=== PATIENT | male | born 1955 | race Caucasian/White ===

== ENCOUNTER 2018-08-22 14:57 | Emergency (ER) | payer OTHER ==
--- OUTSIDE RECORDS SUMMARY | 2018-08-22 14:59 | XMS REPORT | Summary of Care ---
:1955 Author Name MAYCOL SHEFFIELD D.O. Address Unavailable Unavailable , Care Team Providers Name Role Phone ANGELO SCHMIDT N.P. Unavailable Unavailable MAYCOL SHEFFIELD D.O. Unavailable Unavailable Unavailable Unavailable Unavailable Functional Status Name Dates Details Functional status health issues are not documented Status: Name Dates Details Cognitive status health issues are not documented Status: Problems Name Dates Details Protein calorie malnutrition (263.9, E46) Status: Active Intestinal malabsorption (579.9, K90.9) Status: Active Diabetes (250.00, E11.9) Status: Active Vitamin D deficiency (268.9, E55.9) Status: Active Malnutrition (263.9, E46) Status: Active Abdominal pain (789.00, R10.9) Status: Active GERD (gastroesophageal reflux disease) (530.81, K21.9) Status: Active Medications Name Dates Details MetFORMIN HCl - 1000 MG Oral Tablet Refills: 0 Active Verapamil HCl - 40 MG Oral Tablet Refills: 0 Active Actos 15 MG Oral Tablet Refills: 0 Active Losartan Potassium 100 MG Oral Tablet Refills: 0 Active HumaLOG SOLN Refills: 0 Active Multi Vitamin Mens Oral Tablet Refills: 0 Active Brittany Aspirin EC Low Dose 81 MG Oral Tablet Delayed Release Refills: 0 Active Invokana TABS Refills: 0 Active Vitamin D (Ergocalciferol) 75078 UNIT Oral Capsule TAKE 1 CAPSULE WEEKLY. Quantity: 4 Refills: 3 ANGELO SCHMIDT N.P. Start : 09-Jun-2017 Active Sucralfate 1 GM Oral Tablet TAKE 1 TABLET 4 TIMES DAILY, BEFORE MEALS AND AT BEDTIME. Quantity: 120 Refills: 3 MAYCOL SHEFFIELD D.O. Start : 06-May-2018 Active Pantoprazole Sodium 40 MG Oral Tablet Delayed Release TAKE 1 TABLET TWICE DAILY 30 MINUTES BEFORE BREAKFAST AND DINNER. Quantity: 60 Refills: 3 MAYCOL SHEFFIELD D.O. Start : 06-May-2018 Active Allergies and Adverse Reactions Name Dates Details No Known Drug Allergies (Allergy) Status: Active Procedures Procedure Dates Details [L] Vitamin D, 25-Hydroxy, Total - Esoterix Date: 05-May-2018 [LH] CBC (without differential) Date: 05-May-2018 [QL] COMPREHENSIVE METABOLIC PANEL W/O eGFR Date: 05-May-2018 [QLH] FOLATE, SERUM Date: 05-May-2018 [QLH] HEMOGLOBIN A1c Date: 05-May-2018 [QLH] IRON, TOTAL Date: 05-May-2018 [QLH] LIPID PANEL Date: 05-May-2018 [QLH] PTH, INTACT (WITHOUT CALCIUM) Date: 05-May-2018 [QLH] TSH, 3RD GENERATION Date: 05-May-2018 [QLH] VITAMIN A (RETINOL) Date: 05-May-2018 [QLH] VITAMIN B1, WHOLE BLOOD Date: 05-May-2018 [QLH] VITAMIN B12 Date: 05-May-2018 [QLH] VITAMIN E (TOCOPHEROL) Date: 05-May-2018 CT Abdomen/Pelvis w contrast 12191 Date: 05-May-2018 Immunization Name Dates Details Immunizations not documented Social History Name Dates Details - Status: Name Dates Details Unknown if ever smoked Vital Signs Date Test Result Details No Known Vitals to report Results Date Description Value Details Results not documented Plan of Care Name Dates Details Planned Observations Planned Goals not documented Interventions Provided Medication ChangesPantoprazole Sodium 40 MG Oral Tablet Delayed Release - StartSucralfate 1 GM Oral Tablet - StartLabs/Procedures/Imaging[L] Vitamin D, 25 -Hydroxy, Total - Esoterix; To Be Done: 05 May 2018[LH] CBC (without differential); To Be Done: 05 May 2018[QL] COMPREHENSIVE METABOLIC PANEL W/O eGFR; To Be Done: 05 May 2018[QLH] FOLATE, SERUM; To Be Done: 05 May 2018[QLH] HEMOGLOBIN A1c; To Be Done: 05 May 2018[QLH] IRON, TOTAL; To Be Done: 05 May 2018[QLH] LIPID PANEL; To Be Done: 05 May 2018[QLH] PTH, INTACT (WITHOUT CALCIUM ); To Be Done: 05 May 2018[QLH] TSH, 3RD GENERATION; To Be Done: 05 May 2018[QLH ] VITAMIN A (RETINOL); To Be Done: 05 May 2018[QLH] VITAMIN B1, WHOLE BLOOD; To Be Done: 05 May 2018[QLH] VITAMIN B12; To Be Done: 05 May 2018[QLH] VITAMIN E ( TOCOPHEROL); To Be Done: 05 May 2018CT Abdomen/Pelvis w contrast [id number]; To Be Done: 05 May 2018 Instructions Name Dates Details Instructions not documented Encounters Appointment; MAYCOL SHEFFIELD D.O. On: 04-Jun-2016 15:00 Encounter Diagnosis: Problem not documented Appointment; MAYCOL SHEFFIELD D.O. On: 03-Dec-2016 13:00 Encounter Diagnosis: Problem not documented Appointment; MAYCOL SHEFFIELD D.O. On: 27-May-2017 14:00 Encounter Diagnosis: Problem not documented Appointment; MAYCOL SHEFFIELD D.O. On: 05-May-2018 13:45 Encounter Diagnosis: Problem not documented
[2018-08-22] MEDS ORDERED: TETRACAINE HCL 0.5% 2ML OPTH ONE (16:24)
[2018-08-22] MEDS ORDERED: FLUORESCEIN SODIUM 0.6 MG/WRAP ONE (18:56)
--- NOTE | 2018-08-22 19:08 | EDPHYS ---
Physician Documentation [facility] Name: Deondre Duncan Jr Age: 62 yrs Sex: Male : 1955 Arrival Date: 08/22/2018 Time: 15:01 Bed 9 Private MD: Mikayla Kiran C ED Physician Kevin Markham HPI: 08/22 16:05 This 62 yrs old Male presents to ER via Ambulatory with complaints of Foreign jr8 Body In Eye. 16:05 The patient is experiencing pain, redness, tearing, to the right eye, caused by jr8 chemicals. Onset: The symptoms/episode began/occurred acutely, today. Duration: the symptoms are continuous. Aggravated by light, opening eye, Alleviated by nothing. Associated signs and symptoms: Pertinent positives: None. Severity of symptoms: At their worst the symptoms were moderate in the emergency department the symptoms are unchanged. The patient has not experienced similar symptoms in the past. The patient has not recently seen a physician. was cleaning battery terminals on a car and felt a abiel of something go into his right eye. Pain since incident . Historical: - Allergies: 15:11 No Known Allergies; aa5 - PMHx: 15:11 Diabetes - NIDDM; aa5 - PSHx: 15:11 Gastric Bypass(April 23, 2015); Cholecystectomy(2012); aa5 - Immunization history:: Last tetanus immunization: up to date. - Ebola Screening: : No symptoms or risks identified at this time. ROS: 16:05 ENT: Negative for injury, pain, and discharge, Neck: Negative for injury, pain, and jr8 swelling, Cardiovascular: Negative for chest pain, palpitations, and edema, Respiratory: Negative for shortness of breath, cough, wheezing, and pleuritic chest pain, Abdomen/GI: Negative for abdominal pain, nausea, vomiting, diarrhea, and constipation, Back: Negative for injury and pain, MS/Extremity: Negative for injury and deformity, Skin: Negative for injury, rash, and discoloration, Neuro: Negative for headache, weakness, numbness, tingling, and seizure. 16:05 Eyes: Positive for pain, redness, tearing, of the right eye. Exam: 16:05 Head/Face: Normocephalic, atraumatic. ENT: Nares patent. No nasal discharge, no jr8 septal abnormalities noted. Tympanic membranes are normal and external auditory canals are clear. Oropharynx with no redness, swelling, or masses, exudates, or evidence of obstruction, uvula midline. Mucous membranes moist. Cardiovascular: Regular rate and rhythm with a normal S1 and S2. No gallops, murmurs, or rubs. Normal PMI, no JVD. No pulse deficits. Respiratory: Lungs have equal breath sounds bilaterally, clear to auscultation and percussion. No rales, rhonchi or wheezes noted. No increased work of breathing, no retractions or nasal flaring. Skin: Warm, dry with normal turgor. Normal color with no rashes, no lesions, and no evidence of cellulitis. MS/ Extremity: Pulses equal, no cyanosis. Neurovascular intact. Full, normal range of motion. Neuro: Awake and alert, GCS 15, oriented to person, place, time, and situation. Cranial nerves II-XII grossly intact. Motor strength 5/5 in all extremities. Sensory grossly intact. Cerebellar exam normal. Normal gait. 16:05 Eyes: Periorbital structures: appear normal, Pupils: equal, round, and reactive to light and accomodation, Extraocular movements: intact throughout, Conjunctiva: injected, in the right eye, tearing noted, in right eye, Anterior chamber: normal, Lids and lashes: appear normal, Examination of the other eye reveals no obvious gross abnormality. Vital Signs: 15:12 BP 115 / 75; Pulse 105; Resp 18 S; Temp 98.6(TE); Pulse Ox 99% ; Weight 97.52 kg (R); aa5 Height 6 ft. 3 in. (190.50 cm) (R); Pain 3/10; 15:12 Body Mass Index 26.87 (97.52 kg, 190.50 cm) aa5 Visual Acuity: 19:15 Left Eye Visual acuity 20/15, ; Right Eye Visual acuity 20/20, ; Both Eyes Visual ak1 acuity 20/15; With Lenses; MDM: 16:01 Patient medically screened. jr8 19:04 Data reviewed: vital signs, nurses notes, and as a result, I will discharge patient. jr8 Data interpreted: Pulse oximetry: on room air is 99 %. Interpretation: normal. Counseling: I had a detailed discussion with the patient and/or guardian regarding: the historical points, exam findings, and any diagnostic results supporting the discharge/admit diagnosis, the need for outpatient follow up, an opthalmologist, to return to the emergency department if symptoms worsen or persist or if there are any questions or concerns that arise at home. 08/22 16:05 Order name: [facility] [place]: Donte Lens with 1000ml Bag right eye; Complete Time: 17:43 jr8 08/22 19:04 Order name: Visual Acuity; Complete Time: 19:17 jr8 Administered Medications: 16:15 Drug: Tetracaine Drops 0.5 % 1 drops Route: Ophthalmic; Site: right eye; aa5 Disposition: 08/23 09:20 Co-signature as Attending Physician, Dashawn Miner MD I agree with the assessment and jessica plan of care. Disposition: 08/22/18 19:06 Discharged to Home. Impression: Conjunctivitis - Chemical . - Condition is Stable. - Discharge Instructions: Chemical Conjunctivitis, Adult. - Prescriptions for Gentamicin 0.3 % Ophthalmic Drops - instill 2 drops by OPHTHALMIC route every 4 hours for 7 days; 1 bottle. - Medication Reconciliation Form, Thank You Letter, Antibiotic Education, Prescription Opioid Use form. - Follow up: Dashawn Miner MD; When: 1 - 2 days; Reason: Recheck today's complaints, Continuance of care, Re-evaluation by your physician. - Problem is new. - Symptoms have improved. Signatures: Kevin Markham MD MD cha Calderon, Audri, RN RN aa5 Miguel Dash PA PA jr8 Leslie Coreas RN RN ak1 Corrections: (The following items were deleted from the chart) 08/22 19:16 19:06 08/22/2018 19:06 Discharged to Home. Impression: Conjunctivitis - Chemical . ak1 Condition is Stable. Forms are Medication Reconciliation Form, Thank You Letter, Antibiotic Education, Prescription Opioid Use. Follow up: Dashawn Miner; When: 1 - 2 days; Reason: Recheck today's complaints, Continuance of care, Re-evaluation by your physician. Problem is new. Symptoms have improved. jr8
--- NOTE | 2018-08-22 19:08 | ER ---
Nurse's Notes [facility] Name: Deondre Duncan Jr Age: 62 yrs Sex: Male : 1955 Arrival Date: 08/22/2018 Time: 15:01 Bed 9 Private MD: Mikayla Kiran C Diagnosis: Conjunctivitis-Chemical Presentation: 08/22 15:09 Presenting complaint: Patient states: "I was working unde my truck on a battery and I aa5 felt something get into my eye". Pt c/o pain to right eye. Transition of care: patient was not received from another setting of care. Onset of symptoms was August 22, 2018 at 14:30. Risk Assessment: Do you want to hurt yourself or someone else? Patient reports no desire to harm self or others. Initial Sepsis Screen: Does the patient meet any 2 criteria? No. Patient's initial sepsis screen is negative. Does the patient have a suspected source of infection? No. Patient's initial sepsis screen is negative. Care prior to arrival: None. 15:09 Method Of Arrival: Ambulatory aa5 15:09 Acuity: ACE 4 aa5 Triage Assessment: 15:11 General: Appears uncomfortable, Behavior is calm, cooperative. Pain: Complains of pain aa5 in right eye. EENT: Eyes are tearing on right eye Sclera/Cornea are reddened in right eye Reports irritating pain to right eye, no FB noted. . Neuro: Level of Consciousness is awake, alert, obeys commands, Oriented to person, place, time, situation. Respiratory: Airway is patent Respiratory effort is even, unlabored, Respiratory pattern is regular, symmetrical. Derm: Skin is pink, warm \\T\\ dry. Musculoskeletal: Range of motion: intact in all extremities. Historical: - Allergies: 15:11 No Known Allergies; aa5 - PMHx: 15:11 Diabetes - NIDDM; aa5 - PSHx: 15:11 Gastric Bypass(April 23, 2015); Cholecystectomy(2012); aa5 - Immunization history:: Last tetanus immunization: up to date. - Ebola Screening: : No symptoms or risks identified at this time. Screenin:43 Abuse screen: Denies threats or abuse. Denies injuries from another. Nutritional iw screening: No deficits noted. Tuberculosis screening: No symptoms or risk factors identified. Fall Risk None identified. Assessment: 17:00 General: Appears uncomfortable. Pain: Complains of pain in right eye. Neuro: Level of iw Consciousness is awake, alert, obeys commands, Oriented to person, place, time, situation, Moves all extremities. Full function. Cardiovascular: Patient's skin is warm and dry. Respiratory: Respiratory effort is even, unlabored. 17:11 Reassessment: pt unable to tolerate Donte lens. iw 17:42 Reassessment: pt tolerating Donte Lens, approx 500 mL in now. iw Vital Signs: 15:12 BP 115 / 75; Pulse 105; Resp 18 S; Temp 98.6(TE); Pulse Ox 99% ; Weight 97.52 kg (R); aa5 Height 6 ft. 3 in. (190.50 cm) (R); Pain 3/10; 15:12 Body Mass Index 26.87 (97.52 kg, 190.50 cm) aa5 Visual Acuity: 19:15 Left Eye Visual acuity 20/15, ; Right Eye Visual acuity 20/20, ; Both Eyes Visual ak1 acuity 20/15; With Lenses; ED Course: 15:01 Patient arrived in ED. mr 15:01 Mikayla Kiran MD is Private Physician. mr 15:09 Arm band placed on. aa5 15:11 Triage completed. aa5 15:59 Margareth King RN is Primary Nurse. aa5 16:00 Miguel Dash PA is PHCP. jr8 16:00 Kevin Markham MD is Attending Physician. jr8 17:00 Assist provider with eye exam of right eye. Performed by Miguel COLLIER. iw 17:43 Primary Nurse role handed off by Margareth King RN iw 17:43 Juana Gu, ELIZA is Primary Nurse. iw 19:05 Dashawn Miner MD is Referral Physician. jr8 19:16 Patient has correct armband on for positive identification. ak1 19:16 Patient did not have IV access during this emergency room visit. ak1 Administered Medications: 16:15 Drug: Tetracaine Drops 0.5 % 1 drops Route: Ophthalmic; Site: right eye; aa5 Outcome: 19:06 Discharge ordered by MD. jr8 19:16 Discharged to home ambulatory, with family. ak1 19:16 Condition: improved 19:16 Discharge instructions given to patient, family, Instructed on discharge instructions, follow up and referral plans. medication usage, Demonstrated understanding of instructions, follow-up care, medications, Prescriptions given X 1. 19:16 Patient left the ED. ak1 Signatures: Minal PedroJuana, RN RN Margareth Nash RN RN aa5 Miguel Dash, NANDO COLLIER jr8 Leslie Coreas, RN RN ak1 Corrections: (The following items were deleted from the chart) 15:35 15:09 Acuity: ACE 3 aa5 aa5 16:00 General: Appears uncomfortable, Behavior is calm, cooperative, aa5 aa5 : 16:00 Pain: Complains of pain in right eye aa5 aa 16:00 EENT: Eyes are tearing on right eye Sclera/Cornea are reddened in right eye aa5 Reports irritating pain to right eye, no FB noted. . aa5 : 16:00 Neuro: Level of Consciousness is awake, alert, obeys commands, Oriented to aa5 person, place, time, situation, aa5 : 16:00 Respiratory: Airway is patent Respiratory effort is even, unlabored, Respiratory aa5 pattern is regular, symmetrical, aa5 : 16:00 Derm: Skin is pink, warm \\T\\ dry. aa5 aa 16:00 Musculoskeletal: Range of motion: intact in all extremities, aa5 aa
[2018-08-22 21:26] VITALS: BP 115/75; TEMP 98.6; O2SAT 99
== END 2018-08-22 19:16 | disposition home or self-care (01) ==
LOC: ER 14:57
DX: H10.211 Acute toxic conjunctivitis, right eye (principal)
CPT/HCPCS: 99283

== ENCOUNTER 2020-07-06 08:40 | Day surgery (SDC) | payer OTHER ==
--- OUTSIDE RECORDS SUMMARY | 2020-07-06 08:44 | XMS REPORT | Continuity of Care Document ---
:1955 Author Organization [facility] t Address 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 Social History Smoking Status Start Date Stop Date Source Never Smoker [facility] Family P ractice Medications Ordered Filled Start Stop Current Ordering Indication Dosage Frequency Signature Comments Components Source Medication Medication Date Date Medication? Clinician (SIG) Name Name Vitamin D Vitamin D 2019-07 Yes ANGELO TAKE 1 Univers (Ergocalcif (Ergocalcif 0-30 [employer]LE BY ity of saurav) 1.25 saurav) 1.25 00:00: MOUTH ONE [place] MG (58128 MG (18302 00 TIME PER P hysici UT) Oral UT) Oral WEEK ans Capsule Capsule Sucralfate Sucralfate 2017-07 Yes SHINIL Q0.25D TAKE 1 Univers 1 GM Oral 1 GM Oral 0-18 SHEFFIELD D.O. TABLET 4 ity of Tablet Tablet 00:00: TIMES [place] 00 DAILY, Physici BEFORE ans MEALS AND AT BEDTIME. Pantoprazol Pantoprazol 2017-07 Yes SHINIL Q0.5D TAKE 1 Univers e Sodium 40 e Sodium 40 0-18 SHEFFIELD D.O. TABLET ity of MG Oral MG Oral 00:00: TWICE [place] Tablet Tablet 00 DAILY 30 Physici Delayed Delayed MINUTES ans Release Release BEFORE BREAKFAST AND DINNER. Vitamin D Vitamin D 2016-07 Yes ANGELO TAKE 1 Univers (Ergocalcif (Ergocalcif 1-21 [employer] ity of saurav) 1.25 saurav) 1.25 00:00: WEEKLY. [place] MG (88507 MG (85169 00 Physi ci UT) Oral UT) Oral ans Capsule Capsule Calcium [address] [facility] vitamin d3 vitamin d3 500 Fam liliana combp qd combp qd vitamin d3 P ractic combp qd e Centrum Centrum No [facility] Januvia 100 [facility] 100 [facility] [address] [facility] mg tablet mg tablet 100 mg Fam liliana Take 1 Take 1 tablet Practic tablet tablet Take 1 e every day every day tablet by oral by oral every day route for route for by oral 90 days. 90 days. route for 90 days. OneTouch OneTouch No 2strip( Q1D Oneuch [facility] Verio test Verio test s) Verio test Family strips Take strips Take strips Practic 2 strips 2 strips Take 2 e every day every day strips by miscell. by miscell. every day route for route for by 90 days. 90 days. miscell. route for 90 days. pioglitazon pioglitazon No [address] [facility] e 15 mg e 15 mg ne 15 mg Famil y tablet Take tablet Take tablet Practic 1 tablet 1 tablet Take 1 e every day every day tablet by oral by oral every day route for route for by oral 90 days. 90 days. route for 90 days. simvastatin simvastatin No 1 Q1D [facility] 10 mg 10 mg n 10 mg Family tablet Take tablet Take tablet Practic 1 tablet 1 tablet Take 1 e every day every day tablet by oral by oral every day route for route for by oral 90 days. 90 days. route for 90 days. Synjardy XR Synjardy XR No [address] [facility] 12.5 12.5 XR 12.5 Family mg-1,000 mg mg-1,000 mg mg-1,000 Practic tablet, tablet, mg tablet, e extended extended extended release release release Take 2 Take 2 Take 2 tablets tablets tablets every day every day every day by oral by oral by oral route for route for route for 90 days. 90 days. 90 days. tadalafil tadalafil No 1 Q1D tadalafil Ryne 10 mg 10 mg 10 mg Family tablet Take tablet Take tablet Practic 1 tablet 1 tablet Take 1 e every day every day tablet by oral by oral every day route. route. by oral route. Tresiba Tresiba No Tresiba Villag e FlexTouch FlexTouch FlexTouch Family U-100 U-100 U-100 Practic insulin 100 insulin 100 insulin e unit/mL (3 unit/mL (3 100 mL) mL) unit/mL (3 subcutaneou subcutaneou mL) s pen Give s pen Give subcutaneo 10 units in 10 units in us pen AM and AM and Give 10 increase as increase as units in directed: directed: AM and TDD 40 TDD 40 increase as directed: TDD 40 metFORMIN metFORMIN Yes Unive rs HCl - 1000 HCl - 1000 ity of MG Oral MG Oral [place] Tablet Tablet Physici ans Verapamil Verapamil Yes Unive rs HCl - 40 MG HCl - 40 MG i ty of Oral Tablet Oral Tablet [place] [facility] Actos 15 MG Actos 15 MG Yes U nivers Oral Tablet Oral Tablet i ty of [place] [facility] Losartan Losartan Yes Univers Potassium Potassium ity o f 100 MG Oral 100 MG Oral [place] Tablet Tablet Physici ans Multi Multi Yes Univers Vitamin Vitamin ity of Mens TABS Mens TABS [place] [facility] [place] Yes Univers Aspirin EC Aspirin EC ity of Low Dose 81 Low Dose 81 [place] MG Oral MG Oral Physici Tablet Tablet ans Delayed Delayed Release Release HumaLOG HumaLOG Yes Univers SOLN SOLN [facility] [place] [facility] Invokana Invokana Yes Univers TABS TABS [facility] [place] [facility] ans Immunizations Ordered Immunization Filled Immunization Date Status Commen ts Source Name Name influenza, influenza, 2020-03-20 [facility] injectable, injectable, 00:00:00 Practice quadrivalent quadrivalent MMR MMR 1999-03-20 [facility] 00:00:00 Practice Vital Signs Vital Name Observation Time Observation Value Comments Source BP Diastolic 2020-06-21 00:00:00 80 mm[Hg] [facility] Practice Height 2020-06-21 00:00:00 69 [in_i] [facility] Practice BMI (Body Mass 2020-06-21 00:00:00 34.1 kg/m2 [facility] Family Index) Practice BP Systolic 2020-06-21 00:00:00 122 mm[Hg] [facility] Body Weight 2020-06-21 00:00:00 230.9 [lb_av] [facility] BP Systolic 2017-05-27 14:30:00 135 mm[Hg] Universi [facility] Physician s BP Diastolic 2017-05-27 14:30:00 77 mm[Hg] Universi [facility] Physician s Height 2017-05-27 14:30:00 75 [in_us] [facility] [place] [facility] Weight 2017-05-27 14:30:00 225 [lb_av] Universi ty [facility] Physician s Body Mass Index 2017-05-27 14:30:00 28.12 kg/m2 Unive rsity [facility] Physician s Temperature 2017-05-27 14:30:00 98.2 [degF] Universi ty [facility] Physician s Heart Rate 2017-05-27 14:30:00 73 /min Universi ty [facility] Physician s Procedures Procedure Date / Time Performing Clinician Source Performed [L] Vitamin D 25-Hydroxy, 2020-04-11 00:00[facility] [QL] COMPREHENSIVE 2020-04-11 00:00:00 [facility] METABOLIC PANEL W/O eGFR Physici ans [QL] FOLATE, SERUM 2020-04-11 00:00:00 [facility] Physicians [QL] HEMOGLOBIN A1c 2020-04-11 00:00:00 [facility] Phys[facility] [QL] IRON, TOTAL 2020-04-11 00:00:00 [facility] Physicians [QL] LIPID PANEL 2020-04-11 00:00:00 [facility] Physicians [QL] PTH, INTACT (WITHOUT 2020-04-11 00:00[facility]00 [facility] [QL] TSH, 3RD GENERATION 2020-04-11 00:00:00 Uni versity [facility] Physicians [QL] VITAMIN A (RETINOL) 2020-04-11 00:00:00 Uni versity [facility] Physicians [QL] VITAMIN B1, WHOLE 2020-04-11 00:00[facility]00 [facility] [QL] VITAMIN B12 2020-04-11 00:00:00 [facility] Physicians [QL] VITAMIN E 2020-04-11 00:00:00 [place] [facility] [place] (TOCOPHEROL) Physicians NM Bone Density-Dual 2020-04-11 00:00:00 [facility] Energy Absorptionmetry Physician s [id number] [L] Vitamin D, 25-Hydroxy, 2018-05-05 00:00:00 U [facility] Total - [employer] Physicians [LH] CBC (without 2018-05-05 00:00:00 [facility] differential) Physicians [QL] COMPREHENSIVE 2018-05-05 00:00:00 [facility] METABOLIC PANEL W/O eGFR Physici ans [QLH] FOLATE, SERUM 2018-05-05 00:00:00 [facility] Physicians [QLH] HEMOGLOBIN A1c 2018-05-05 00:00:00 [facility] Physicians [QLH] IRON, TOTAL 2018-05-05 00:00:00 [facility] Physicians [QLH] LIPID PANEL 2018-05-05 00:00:00 [facility] Physicians [QLH] PTH, INTACT (WITHOUT 2018-05-05 00:00:00 U [facility] CALCIUM) Physicians [QLH] TSH, 3RD GENERATION 2018-05-05 [facility] VITAMIN A (RETINOL) 2018-05-05 00:00[facility]00 [facility]] VITAMIN B1, WHOLE 2018-05-05 00:00:00 Univ [facility] BLOOD Physicians [QLH] VITAMIN B12 2018-05-05 00:00:00 [facility] Physicians [QLH] VITAMIN E 2018-05-05 00:00:00 [place] [facility] [place] (TOCOPHEROL) Physicians CT Abdomen/Pelvis w 2018-05-05 00:00:00 [facility] contrast [id number] Physicians [LH] CBC (without 2017-05-27 00:00:00 [facility] differential) Physicians [QLH] FOLATE, SERUM 2017-05-27 00:00:00 [facility] Physicians [QLH] IRON, TOTAL 2017-05-27 00:00:00 [facility] Physicians [QLH] PTH, INTACT (WITHOUT 2017-05-27 00:00:00 [facility] Physicians [QL] VITAMIN A (RETINOL) 2017-05-27 00:00:00 [facility] [[facility]] VITAMIN B12 2017-05-27 00:00:00 [facility] Physicians [L] Vitamin D 25-Hydroxy, 2017-05-27 00:00:00 Un [facility] D2 + D3 Physicians [QL] COMPREHENSIVE 2017-05-27 00:00:00 [facility] METABOLIC PANEL W/O eGFR Physici ans [QL] HEMOGLOBIN A1c 2017-05-27 00:00:00 [facility] [QL] LIPID PANEL 2017-05-27 00:00:00 [facility] Physicians [[facility]] TSH, 3RD GENERATION 2017-05-27 00:00:00 Un [facility] Physicians [[facility]] VITAMIN B1, WHOLE 2017-05-27 00:00:00 [facility] BLOOD Physicians [[facility]] VITAMIN E 2017-05-27 00:00:00 [place] [facility] (TOCOPHEROL) Physicians Plan of Care Planned Activity Planned Date Details Comments Source Diagnostic Test 2020-06-21 glucose, fingerstick, [place] [facility] Family Pending 00:00:00 blood [code = Practice glucose, fingerstick, blood] Diagnostic Test 2020-06-21 hemoglobin A1C, [place] F amily Pending 00:00:00 fingerstick [code = Practice hemoglobin A1C, fingerstick] Diagnostic Test 2020-06-21 diabetes panel, serum [facility] Family Pending 00:00:00 [code = diabetes Practice panel, serum] Diagnostic Test 2020-06-21 C-peptide, serum [facility] Pending 00:00:00 [code = C-peptide, Practice serum] Future Appointment 2020-09-19 Adriel Jenkins, [id number] [facility] 08:00:[address]; Practice [address], [place] [address] Future Appointment 2020-09-19 Adriel Jenkins, [id number] [facility] 00:00:00 [address]; [address], [place] [address] Encounters Start End Encounter Admission Attending Care Care Encounter Source Date/Time Date/Time Type Type Clinicians Facility Department ID 2020-06-21 2020-06-21 Adriel AKHTAR [place] - [id number] [facility] 00:00:00 00:00:[address] [facility] Family Gregory, Tj - Barbara butler MD: [id number] [id number] salazar [facility], [address] [address] , Ph. 2020-04-11 2020-04-11 ISHMAEL Diaz General [id number] Univers 13:15:00 13:15:00 t; MAYCOL SHEFFIELD, Surgery - Miguel Angel D.O. [facility] ans 2018-05-05 2018-05-05 ISHMAEL Diaz General [id number] Univers 13:45:00 13:45:00 t; MAYCOL SHEFFIELD, Surgery sukhwinder SEVERINO D.O. [place] [facility] ans 2017-05-27 2017-05-27 ISHMAEL Diaz Stephanie [id number] Univers 14:00:00 14:00:00 t; MAYCOL SHEFFIELD, [facility] sukhwinder SEVERINO D.O. [place] D[facility]. Physici ans 2016-12-03 2016-12-03 ISHMAEL Diaz UTP [id number] Univers 13:00:00 13:00:00 t; MAYCOL SHEFFIELD ity o f SHINIL, D.O. [place] D[facility]. Physici ans 2016-06-04 2016-06-04 ISHMAEL Diaz [id number] Univers 15:00:00 15:00:00 t; MAYCOL SHEFFIELD ity o f SHINIL, D.O. [place] D.O. Physici ans 2016-03-05 2016-03-05 ISHMAEL Diaz [id number] Univers 15:00:00 15:00:00 t; MAYCOL SHEFFIELD ity o f SHINIL, M.D. [place] M.D. Physici ans 2015-10-31 2015-10-31 ISHMAEL Diaz [id number] Univers 14:00:00 14:00:00 t; MAYCOL SHEFFIELD ity o f SHINIL, M.D. [place] M.D. Physici ans 2015-07-25 2015-07-25 ISHMAEL Diaz [id number] Univers 13:00:00 13:00:00 t; MAYCOL SHEFFIELD ity o f SHINIL, M.D. [facility] 2015-06-13 2015-06-13 Appointmen NETTIE ISHMAEL [facility] [id number] Univers 13:00:00 13:00:00 t; MAYCOL SHEFFIELD ity o f SHINIL, M.D. [facility] Results Test Description Test Time Test Comments Results Result Comments Source [QL] LIPID PANEL 2020-05-08 08:48:00 Test Item Value Reference Range Interpretation Comme nts CHOLESTEROL, TOTAL; Normal 120 mg/dl <200 N (test code = 2093-3) HDL CHOLESTEROL; Normal (test 53 mg/dl > OR = 40 N code = 2085-9) TRIGLYCERIDES; Normal (test 103 mg/dl <150 N code = 2571-8) LDL-CHOLESTEROL; Normal (test 48 {MG/DL MARILY} N Reference range: <100 code = 30032-1) Desirable ra nge <100 mg/dL for primary pre vention; <70 mg/dL for patie nts with CHD or diabetic pat ients with > or = 2 CHD risk factors. LDL-C is now ca lculated using the Margoth Swartz calculation, wh ich is a validated novel method providing minoo r accuracy than the Friede lidia equation in the estimati on of LDL-C. Anup SS et al . MAGALIS. 2013;310(84): 5 062-3958 (http://educati on.Cloupia.CleverSet/faq/ HZS602) CHOL/HDLC RATIO (test code = 2.3 {CALC} <5.0 N CHOL/HDLC RATIO) NON HDL CHOLESTEROL (test 67 {MG/DL MARILY} <130 N For patients with diabetes code = NON HDL CHOLESTEROL) plus 1 major ASCVD risk factor, treatin g to a non-HDL-C goal of <100 mg/dL (LDL-C of <70 m g/dL) is considered a th erapeutic option. [facility] Physicians[QL] IRON, [id number] 08:48:00 Test Item Value Reference Range Interpretation Comments IRON, TOTAL (test code = IRON, 88 {mcg/dl} 50-180 N TOTAL) [facility] Physicians[QL] TSH, 3RD [id number] 08:48:00 Test Item Value Reference Range Interpretation Comments TSH; Normal (test code = 1.24 {MIU/L} 0.40-4.50 N 38405-6) [facility] Physicians[QL] VITAMIN D, 25-HYDROXY, LC/MS/[id number] 08:48:00 Test Item Value Reference Range Interpretation Comments VITAMIN 26 ng/ml 30-100 Vitamin D Statu s D,25-OH,TOTAL,IA 25-OH Vitam in D: (test code = VITAMIN Deficie ncy: D,25-OH,TOTAL,IA) <20 ng/mLInsufficie ncy: 20 - 29 ng/mLOptimal: > or = 30 n g/mL For 25-OH Vitamin D testing on patients on D2-supplementat ion and patients for wh om quantitation of D2 and D3 fractions is re quired, the QuestAssure D(TM)25-OH VIT D, (D2,D3), LC/MS/MS is recommended: order code 92854 (pat ients >2yrs).See Note 1 Note 1 For additional information, pl ease refer to http://educatio n.DotSpots.CleverSet/fa q/ZIV615 (This link is b eing provided for informational/e ducational purposes only.) [facility] Physicians[QL] HEMOGLOBIN [id number] 08:48:00 Test Item Value Reference Range Interpretation Comments HEMOGLOBIN A1c; 7.9 {% of <5.7 For someone without Above High total} known diabetes, a Threshold (test hemoglobin A 1cvalue of code = 4548-4) 6.5% or great er indicates that they may have diabet es and this should be confirmed with a follow-up test. For someone with kn own diabetes, a micheline ue <7% indicates that their diabetes is wel l controlled and a value greater than or equal to 7% indicates suboptimal cont rol. A1c targets kit uld be individualized based on duration of diabetes, age, comorbid condit ions, and other considerations. Currently, no consensus exist s regarding use ofhemoglobin A1 c for diagnosis of di abetes for children. [facility] Physicians[QL] PTH, INTACT (WITHOUT CALCIUM)2020-05-08 08:48:00 Test Item Value Reference Range Interpretation Comments PARATHYROID 25 pg/ml 14-64 N Interpretive Gu elicia Intact HORMONE, INTACT PTH (test code = Calcium-------- PARATHYROID HORMONE, INTACT) -------Norm al Parathyroid Normal NormalHypoparat hyroidism Low or Low Norm al LowHyperparathy roidism Primary Normal or High High Secondary High Normal or Low Tertiary High HighNon-Parathy roid Hypercalcemia Low or Low Normal High [facility] Physicians[] FOLATE, [id number] 08:48:00 Test Item Value Reference Range Interpretation Comments FOLATE, SERUM (test 20.7 ng/ml N Referenc e Range code = FOLATE, Low: SERUM) <3.4 Borderline: 3.4-5.4 Normal: >5.4 [facility][QL] VITAMIN [id number] 08:48:00 Test Item Value Reference Range Interpretation Comments VITAMIN B12 (test code = VITAMIN 413 pg/ml 200-1100 N B12) [facility] Physicians[QL] VITAMIN E (TOCOPHEROL)2020-05-08 08:48:00 Test Item Value Reference Range Interpretation Comments ALPHA-TOCOPHEROL 12.4 mg/L Reference R trav (test code = 5.7-19.9 mg/L ALPHA-TOCOPHEROL) Levels of alpha-tocopherol <5 mg/L are consistent with Vitamin E deficiency in adults.Vitamin supplementation within 24 hours prior to blood draw may affect the accuracy of results. T his test was developed and i ts analytical perf ormance characteristics have been determined by [employer]. It has not been cleared or approved by theFDA. This as say has been validated pursu ant to the CLIA regulation s and is used for clinic al purposes. [id number]-[id number] <1.0 <4.4 This test was developed and SAURAV (test code = its analyt ical performance [id number] characteri stics have been SAURAV) determined by [employer]. It has not been cleared or approved by theFDA. This as say has been validated pursu ant to the CLIA regulation s and is used for clinic al purposes. [facility] Physicians[QL] VITAMIN B1, WHOLE [id number] 08:48:00 Test Item Value Reference Range Interpretation Comments VITAMIN B1, WHOLE 158 nmol/L 78-185 Vitamin berman pplementation BLOOD (test code = within 24 hours prior VITAMIN B1, WHOLE toblood dr mcnally may affect BLOOD) the accuracy of results. This test was developed and its analyti marily performance characteristics have been determined by [employer]. It has not been cleared or approved by theFDA. This assay has been validated pursuant to the CLIA reg ulations and is used for clinical purposes. [facility] Physicians[QL] VITAMIN A (RETINOL)2020-05-08 08:48:00 Test Item Value Reference Range Interpretation Comments VITAMIN A (test 67 {mcg/dl} 38-98 Clin Chem Vol. 34.No.8. code = VITAMIN A) [id number] supplementation within 24 hours prior to blood draw may affect the accuracy of results. T his test was developed a nd its analytical perf ormance characteristics have been determined by [employer]. It has not been cleared or approved by theFDA. This assay has been validated pursuant to the CLIA reg ulations and is used for clinical purposes. [facility] Physicians[Q] VITAMIN B1 (THIAMINE), LC/MS/[id number] 08:29:00 Test Item Value Reference Range Interpretation Comments VITAMIN B1 208 nmol/L 8-30 Vitamin supplem entation (THIAMINE), within 24 hours prior to LC/MS/MS (test blood draw ma y affect the code = VITAMIN B1 accuracy o f results. (THIAMINE), This test was d eveloped LC/MS/MS) and its analyti marily performance characteristics have been determined by [employer] Micheline encia. It has not been cl eared or approved by FDA . This assay has been validated pursuant to the CLIA regulations and is used for clinical pu rposes. [facility] Physicians[Q] QUESTASSURED 25-OH VIT D, (D2,D3), LC/MS/MS 2017-06-02 08:29:00 Test Item Value Reference Range Interpretation Comments VITAMIN D, 25-OH, 29 ng/ml 30-100 25-OHD3 in dicates both TOTAL (test code = endogenou s production VITAMIN D, 25-OH, and supple mentation. TOTAL) 25-OHD2 is an i ndicator of exogenous so urces, such as diet or supplementation . Therapy is based on tom surement of Total 25-OHD , with levels <20 ng/m L indicative of V itamin D deficiency, whi le levels between 20 ng/m L and 30 ng/mL suggest insufficiency. Optimal levels are > or = 30 ng/mL. VITAMIN D, 25-OH, D3 29 ng/ml See Below Referen ce Range: Not (test code = VITAMIN establi shed D, 25-OH, D3) VITAMIN D, 25-OH, D2 <4 See Below Referen ce Range: Not (test code = VITAMIN establi shed D, 25-OH, D2) [facility] Physicians[] COMPREHENSIVE METABOLIC PANEL W/O eGFR 2017-06-02 08:29:00 Test Item Value Reference Range Interpretation Comments GLUCOSE; Above 156 mg/dl 65-99 Fasting refer ence High Threshold interval For someone (test code = without known 1547-9) diabetes, a glucosevalue >1 25 mg/dL indicates that they may havedi abetes and this should be confirmed with afollow-up test . UREA NITROGEN 13 mg/dl 7-25 N (BUN) (test code = UREA NITROGEN (BUN)) CREATININE (test 0.82 mg/dl 0.70-1.33 N For patient s >49 years code = of age, the ref erence CREATININE) limitfor Creati nine is approximately 1 3% higher for peopleidentifie d as -Shellie n. BUN/CREATININE NOT APPLICABLE 6-22 RATIO (test code = BUN/CREATININE RATIO) SODIUM (test code 140 mmol/L 135-146 N = SODIUM) POTASSIUM (test 4.2 mmol/L 3.5-5.3 N code = POTASSIUM) CHLORIDE (test 101 mmol/L 98-110 N code = CHLORIDE) CARBON DIOXIDE 29 mmol/L 20-31 N (test code = CARBON DIOXIDE) CALCIUM (test 9.5 mg/dl 8.6-10.3 N code = CALCIUM) PROTEIN, TOTAL 7.1 g/dl 6.1-8.1 N (test code = PROTEIN, TOTAL) ALBUMIN (test 4.7 g/dl 3.6-5.1 N code = ALBUMIN) GLOBULIN (test 2.4 {G/DL CALC} 1.9-3.7 N code = GLOBULIN) ALBUMIN/GLOBULIN 2.0 {CALC} 1.0-2.5 N RATIO (test code = ALBUMIN/GLOBULIN RATIO) BILIRUBIN, TOTAL; 1.0 mg/dl 0.2-1.2 N Normal (test code = 26935-2) ALKALINE 109 u/l 40-115 N PHOSPHATE (test code = ALKALINE PHOSPHATE) AST; Normal (test 19 u/l 10-35 N code = 1916-6) ALT; Normal (test 16 u/l 9-46 N code = 1742-6) [facility]] FOLATE, [id number] 08:29:00 Test Item Value Reference Range Interpretation Comments FOLATE, SERUM (test >24.0 N Referenc e Range code = FOLATE, SERUM) Low: <3.4 Borderli ne: 3.4-5.4 Normal: >5.4 [facility][] CBC (H/H, RBC, INDICES, WBC, PLT)2017-06-02 08:29:00 Test Item Value Reference Range Interpretation Comments WHITE BLOOD CELL COUNT 5.7 {Thousand/u} 3.8-10.8 N (test code = WHITE BLOOD CELL COUNT) RED BLOOD CELL COUNT (test 5.32 {Million/uL} 4.20-5.80 N code = RED BLOOD CELL COUNT) HEMOGLOBIN; Normal (test 15.6 g/dl 13.2-17.1 N code = 95085-8) HEMATOCRIT; Normal (test 46.2 % 38.5-50.0 N code = 4544-3) MCV; Normal (test code = 86.8 fL 80.0-100.0 N 787-2) MCHC; Normal (test code = 33.8 g/dl 32.0-36.0 N 88521-6) RDW; Normal (test code = 12.5 % 11.0-15.0 N 788-0) PLATELET COUNT; Normal 264 {Thousand/u} 140-400 N (test code = 777-3) MPV; Normal (test code = 9.6 fL 7.5-12.5 N 47467-9) [facility]] TSH, 3RD [id number] 08:29:00 Test Item Value Reference Range Interpretation Comments TSH; Normal (test code = 1.66 {MIU/L} 0.40-4.50 N 86070-3) [facility] VITAMIN [id number] 08:29:00 Test Item Value Reference Range Interpretation Comments VITAMIN B12 (test code = VITAMIN 439 pg/ml 200-1100 N B12) [facility]] HEMOGLOBIN [id number] 08:29:00 Test Item Value Reference Range Interpretation Comments HEMOGLOBIN A1c; 7.7 {% of <5.7 For someone without Above High total} known diabetes, a Threshold (test hemoglobin A 1cvalue of code = 4548-4) 6.5% or great er indicates that they may have diabet es and this should be confirmed with a follow-up test. For someone with kn own diabetes, a micheline ue <7% indicates that their diabetes is wel l controlled and a value greater than or equal to 7% indicates suboptimal cont rol. A1c targets kit uld be individualized based on duration of diabetes, age, comorbid condit ions, and other considerations. Currently, no consensus exist s regarding use ofhemoglobin A1 c for diagnosis of di abetes for children. [facility]] VITAMIN A (RETINOL)2017-06-02 08:29:00 Test Item Value Reference Range Interpretation Comments VITAMIN A (test 58 {mcg/dl} 38-98 Clin Chem Vol. 34.No.8. code = VITAMIN A) [id number] Vitamin supplem entation within 24 hours prior to blood draw may affect the accuracy of res ults. This test was rock briggs and its analyti marily performance characteristics have been determined by [employer]. It azul s not been cleared or appr christine by the USFood and Drug Administration. This assay has been validated pursuant to the CLIA regulations and is used for clinical pu rposes. [facility]] VITAMIN E (TOCOPHEROL)2017-06-02 08:29:00 Test Item Value Reference Range Interpretation Comments ALPHA-TOCOPHEROL 9.9 mg/L 5.7-19.9 Pediatric T erm Infants (Cord (test code = Blood) 1. 8 - 5.8 mg/L ALPHA-TOCOPHEROL) Levels of alpha-tocopherol < 5 mg/L are co nsistent with VitaminE defici ency in adults [id number] 1.0 mg/L < 4.3 Vitamin berman pplementation SAURAV (test code = within 24 hours prior to [id number] blood draw may affect the SAURAV) accuracy of res ults. This test was inge enrique and its analytical perf ormance characteristics have been determined by [employer]. It azul s not been cleared or appr christine by the USFood and Drug Administration. This assay has been valida nathanael persuant to the CLIA reg ulations and is used for cli nical purposes. [facility]] LIPID [id number] 08:29:00 Test Item Value Reference Range Interpretation Comments CHOLESTEROL, TOTAL; 115 mg/dl <200 N Normal (test code = 3-3) HDL CHOLESTEROL; 49 mg/dl >40 N Normal (test code = 5-9) TRIGLYCERIDES; 93 mg/dl <150 N Normal (test code = 2571-8) LDL-CHOLESTEROL; 48 {MG/DL N Reference r trav: Normal (test code = MARILY} <100 Jared irable range 89017-4) <100 mg/dL for patients with C HD ordiabetes and <70 mg/dL for diabe tic patients withkn own heart disease. LDL-C is now calculat ed using the Anup-Mike calculation, wh ich is a validated novel method providin g better accuracy than the Friedewald equation in the estimation of L DL-C. Anup SS et al . MAGALIS. 2013;310( 19): 5041-2013 (http://educati on.[employer] estImmunotEGG. com/f aq/KFA005) CHOL/HDLC RATIO 2.3 {CALC} <5.0 N (test code = CHOL/HDLC RATIO) NON HDL CHOLESTEROL 66 {MG/DL <130 N For joseph ents with (test code = NON HDL MARILY} diabete s plus 1 CHOLESTEROL) major ASCVD ris k factor, treatin g to a non-HDL-C goa l of <100 mg/dL (LDL -C of <70 mg/dL) is considered a therapeutic opt ion. [facility][Q] PTH, INTACT AND [id number] 08:29:00 Test Item Value Reference Interpretation Comments Range PARATHYROID 47 pg/ml 14-64 N Interpretive Gu elicia Intact HORMONE, INTACT PTH (test code = Calcium-------- PARATHYROID HORMONE, INTACT) -------Norm al Parathyroid Normal NormalHypoparat hyroidism Low or Low Norm al LowHyperparathy roidism Primary Normal or High High Secondary High Normal or Low Tertiary High HighNon-Parathy roid Hypercalcemia Low or Low Normal High CALCIUM (test 9.5 mg/dl 8.6-10.3 N code = CALCIUM) [facility]] IRON, [id number] 08:29:00 Test Item Value Reference Range Interpretation Comments IRON, TOTAL (test code = IRON, 114 {mcg/dl} 50-180 N TOTAL) [facility]
[2020-07-06 08:45] LABS: Absolute Lymphocytes (CBC) 1.3 K/uL (0.7-4.9); Basophils % 0.8 % (0-1.3); Hematocrit 43.7 % (39.6-49.0); Lymphocytes % 24.7 % (15.3-44.8); MPV 7.6 fL (7.6-11.3); RBC Red Blood Cell Count 5.31 M/uL (4.33-5.43)
[2020-07-06 09:00] LABS: Potassium 4.2 mmol/L (3.5-5.1)
--- NOTE | 2020-07-06 09:01 | RAD REPORT ---
EXAM DESCRIPTION: RAD - Chest Pa And Lat (2 Views) - 07/06/2020 8:39 am CLINICAL HISTORY: PRE OP, patient pending colonoscopy COMPARISON: None TECHNIQUE: Frontal and lateral views of the chest were obtained. FINDINGS: The lungs are clear of a focal mass or consolidation. No failure or volume overload. Inte rstitial pattern is mildly prominent. Emphysema changes are suspected and can be correlated with clin ical findings and history. Heart size is normal and central vasculature is within normal limits. No pleural effusion or pneumo thorax seen. No acute bony finding noted. No aortic abnormality. IMPRESSION: No acute cardiopulmonary process. COPD changes are suspected.
[2020-07-06] MEDS ORDERED: NA CHLORIDE 0.9% 1,000 ML ONE (09:12)
[2020-07-06 09:31] VITALS: O2SAT 100
[2020-07-06] MEDS ORDERED: GLYCOPYRROLATE 0.2 MG/ML SYR ONE (10:16)
[2020-07-06] MEDS ORDERED: propofoL 200 MG/20 ML VIAL IV ONE (10:16)
[2020-07-06] MEDS ORDERED: LIDOCAINE 1% MPF 5 ML VIAL ONE (10:16)
[2020-07-06] MEDS ORDERED: ONDANSETRON 4 MG/2 ML VIAL ONE (10:16)
--- NOTE | 2020-07-06 11:13 | ENDO RPT ---
[address], [address] COLONOSCOPY PROCEDURE REPORT EXAM DATE: 07/06/2020 PATIENT NAME: Deondre Duncan MR #: [id number] BIRTHDATE: 1955 ATTENDING: Kasi Johnson M.D. STATUS: outpatient BUCKLE STRAP PUNCHER: Janie David RN and Kathy BERNARD INDICATIONS: The patient is a 64 yr old Male here for a colonoscopy due to colon cancer screening PROCEDURE PERFORMED: Colonoscopy MEDICATIONS: Per Anesthesia. ESTIMATED BLOOD LOSS: None CONSENT: The patient understands the risks and benefits of the procedure and understands that these risks include, but are not limited to: sedation, allergic reaction, infection, perforation and/or bleeding. Alternative means of evaluation and treatment include, among others: physical exam, x-rays, and/or surgical intervention. The patient elects to proceed with this endoscopic procedure. DESCRIPTION OF PROCEDURE: During intra-op preparation period all mechanical medical equipment was checked for proper function. Hand hygiene and appropriate measures for infection prevention was taken. Procedure, possible complications, alternatives including, but not limited to possibility of bleeding, perforation, tear, infection, sepsis, need for surgery, need for blood transfusion, were explained to the patient. After the risks, benefits and alternatives of the procedure were thoroughly explained, Informed consent was verified, confirmed and timeout was successfully executed by the treatment team. The patient was placed in the left lateral position. A digital rectal exam was performed and revealed an enlarged prostate. After appropriate level of anesthesia, the scope was passed. The [id number] ([id number]) endoscope was introduced through the anus and advanced to the cecum, which was identified by the ileocecal valve. The quality of the prep was fair. The instrument was then slowly withdrawn as the colon was fully examined. Scope withdrawal time was 30 minutes. COLON FINDINGS: Mild diverticulosis was noted in the descending colon and sigmoid colon. Retroflexed views revealed no abnormalities. The scope was then completely withdrawn from the patient and the procedure terminated. ADVERSE EVENTS: There were no complications. IMPRESSIONS: Mild diverticulosis was noted in the descending colon and sigmoid colon RECOMMENDATIONS: 1. follow-up: office 1 week(s) 2. increase dietary water 3. no seeds in diet 4. fiber rich diet RECALL: Return in 10 year(s) Kasi Johnson M.D. eSigned: Kasi Johnson M.D. 07/06/2020 11:12 AM cc: Jc Kiran M.D. CPT CODES: ICD9 CODES: 600.0 Hypertrophy (benign) of prostate PATIENT NAME: Deondre Duncan MR#: [id number]
[2020-07-06 12:01] VITALS: TEMP 97.5
[2020-07-06 12:02] VITALS: BP 101/70
--- NOTE | 2020-07-07 14:00 | EKG ---
Test Date: 2020-07-06 Test Time: 08:10:52 Deputy General Counsel: MITCH MEASUREMENT RESULTS: Intervals: Rate: 63 IA: 176 QRSD: 94 QT: 402 QTc: 411 [place]: P: 39 IA: 176 QRS: 44 T: 60 INTERPRETIVE STATEMENTS: Normal sinus rhythm Normal ECG Compared to ECG 06/24/2012 14:52:22 No significant changes Electronically Signed On 07-07-20 13:58:36 BRAKE TESTER by Ean Moraes
== END 2020-07-06 11:40 | disposition home or self-care (01) ==
LOC: OR 08:40
PROVIDERS: ATTEND Surgery
PROC: 0DJD8ZZ Inspection of Lower Intestinal Tract, Via Natural or Artificial Opening Endoscopic (ICD-10-PCS; principal; 2020-07-06 10:00)
DX: K57.30 Diverticulosis of large intestine without perforation or abscess without bleeding (principal); Z12.11 Encounter for screening for malignant neoplasm of colon; R10.31 Right lower quadrant pain; E11.9 Type 2 diabetes mellitus without complications; Z79.84 Long term (current) use of oral hypoglycemic drugs
CPT/HCPCS: 93005; 85025; 80048; 36415; 82947; 71046; 45378; J2704; J7030; J2405